=== PATIENT | female | born 1970 | race Caucasian/White ===

== ENCOUNTER 2023-08-21 09:57 | Outpatient (RCR) | payer SELFPAY | END 2023-09-17 23:59 | LOC: NS 09:57 | PROVIDERS: PCP Family Medicine | DX: Z71.3 Dietary counseling and surveillance (principal) ==

== ENCOUNTER 2024-01-11 17:30 | Outpatient (RCR) | payer SELFPAY | END 2024-01-16 23:59 | LOC: NS 17:30 | PROVIDERS: PCP Family Medicine | DX: Z71.3 Dietary counseling and surveillance (principal) ==